=== PATIENT | male | born 1955 | race Caucasian/White ===

== ENCOUNTER 2019-12-22 08:43 | Emergency (ER) | payer MEDICARE, MEDICAID ==
[~2019-12-22] VITALS: Ht 167.6 cm; Wt 61.4 kg
[~2019-12-22 08:43] MED LIST: CEPH250T PO; HCTZ25T PO; LISI10TA4 PO
[2019-12-22 09:05] VITALS: BP 148/89
== END 2019-12-22 09:39 | disposition home or self-care (01) ==
LOC: ER 08:43
DX: Z48.01 Encounter for change or removal of surgical wound dressing (principal); Z90.49 Acquired absence of other specified parts of digestive tract; F15.90 Other stimulant use, unspecified, uncomplicated; Z59.0 Homelessness; Z56.0 Unemployment, unspecified; Z79.2 Long term (current) use of antibiotics; Z79.899 Other long term (current) drug therapy
CPT/HCPCS: 99281

== ENCOUNTER 2020-02-01 01:20 | Emergency (ER) | payer MEDICARE, MEDICAID ==
[~2020-02-01] VITALS: Ht 167.6 cm; Wt 75.7 kg
[~2020-02-01 01:20] MED LIST changes: -CEPH250T PO
[2020-02-01 02:02] LABS: BASOPHILS % (AUTO) 0.4 % (0-1); EOSINOPHILS # (AUTO) 0.2 X10'3 (0-0.9); EOSINOPHILS % (AUTO) 1.7 % (0-6); HEMATOCRIT 36.5 % (42.0-52.0); HEMOGLOBIN 11.8 g/dl (14.0-17.9); LYMPHOCYTES # (AUTO) 3.1 X10'3 (1.1-4.8); LYMPHOCYTES % (AUTO) 24.4 % (21-51); MEAN CORPUSCULAR HEMOGLOBIN 25.9 PG (27.0-31.0); MEAN CORPUSCULAR HGB CONC 32.3 g/dL (33.0-36.5); MEAN CORPUSCULAR VOLUME 80.3 FL (78-98); MEAN PLATELET VOLUME 7.2 FL (7.4-10.4); MONOCYTES # (AUTO) 1.3 X10'3 (0-0.9); MONOCYTES % (AUTO) 10.2 % (2-12); NEUTROPHILS # (AUTO) 8.2 X10'3 (1.8-7.7); NEUTROPHILS % (AUTO) 63.3 % (42-75); PLATELET COUNT 481 X10'3 (140-440); RED BLOOD COUNT 4.55 X10'6 (4.70-6.10); WHITE BLOOD COUNT 12.9 X10'3 (4.5-11.0)
[2020-02-01 02:12] LABS: ALANINE AMINOTRANSFERASE 13 U/L (12-78); ALBUMIN 3.1 G/DL (3.4-5.0); ALBUMIN/GLOBULIN RATIO 0.7 (1.1-1.5); ALKALINE PHOSPHATASE 101 IU/L (46-116); ANION GAP 6 (8-16); ASPARTATE AMINO TRANSFERASE 15 U/L (10-37); BILIRUBIN,TOTAL 0.3 MG/DL (0.1-1.0); BLOOD UREA NITROGEN 18 MG/DL (7-18); BUN/CREATININE RATIO 19.1 (5.4-32.0); CALCIUM 8.6 MG/DL (8.5-10.1); CHLORIDE 106 MMOL/L (99-107); CREATININE 0.94 MG/DL (0.60-1.10); GLUCOSE 96 MG/DL (70-104); LIPASE 126 U/L (73-393); POTASSIUM 3.7 MMOL/L (3.5-5.1); SODIUM 139 MMOL/L (135-145); TOTAL CARBON DIOXIDE 27.3 MMOL/L (24-32); TOTAL PROTEIN 7.3 G/DL (6.4-8.2); eGFR 80 ML/MIN
[2020-02-01 03:41] LABS: CLARITY,URINE CLOUDY (Clear); COLOR,URINE YELLOW (Yellow); GLUCOSE, URINE NEGATIVE (Neg); KETONES,URINE NEGATIVE (Neg); LEUKOCYTE ESTERASE ,URINE LARGE (Neg); NITRITES, URINE NEGATIVE (Neg); OCCULT BLOOD,URINE TRACE-INTACT (Neg); PROTEIN,URINE NEGATIVE (Neg); UROBILINOGEN,URINE 0.2 E.U/dL (0.2-1.0)
[2020-02-01 03:52] LABS: UA COLLECTION TYPE CLN CATCH MIDSTREAM
[2020-02-01 03:54] LABS: BACTERIA,URINE 2+ /HPF (Neg); RBC,URINE NONE SEEN /HPF (0-2); SQUAMOUS EPITHELIAL CELL,UR NONE SEEN /LPF (FEW); WBC,URINE 30-50 /HPF (0-4)
[2020-02-01] MEDS ORDERED: dicyclomine 10 MG capsule PO ONE (03:55)
[2020-02-01] MEDS ORDERED: HYDROcodone/acetaminophen 5mg/325mg tablet PO ONE (03:55)
[2020-02-01] MEDS ORDERED: DOXYCYCLINE 100MG CAPSULE PO STA (03:57)
[2020-02-01] MEDS ORDERED: DOXY150T5 PO (03:59)
[2020-02-01] MEDS ORDERED: ONDA4TAB6 PO (03:59)
[2020-02-01] MEDS ORDERED: phenazopyridine 100mg tablet PO ONE (04:00)
[2020-02-01] MEDS ORDERED: CefTRIAXone 250MG IM Kit w/LIDOcaine IM ONE (04:00)
[2020-02-01] MEDS ORDERED: CefTRIAXone 250MG inj IM ONE (04:00)
[2020-02-01 04:19] VITALS: BP 152/78
== END 2020-02-01 04:22 | disposition home or self-care (01) ==
LOC: ER 01:20
DX: N39.0 Urinary tract infection, site not specified (principal); F15.90 Other stimulant use, unspecified, uncomplicated; F17.200 Nicotine dependence, unspecified, uncomplicated; Z90.49 Acquired absence of other specified parts of digestive tract; Z59.0 Homelessness; Z56.0 Unemployment, unspecified; Z79.899 Other long term (current) drug therapy
CPT/HCPCS: 36415; 80053; 81001; 83690; 85025; 87088; 96372; 99284; J0696; 87077; 87186

== ENCOUNTER 2020-03-02 13:44 | Emergency (ER) | payer MEDICARE, MEDICAID ==
[~2020-03-02] VITALS: Ht 167.6 cm; Wt 61.4 kg
[~2020-03-02 13:44] MED LIST changes: +ONDA4TAB6 PO
[2020-03-02 14:12] VITALS: BP 180/92
== END 2020-03-02 15:28 | disposition home or self-care (01) ==
LOC: ER 13:45
DX: R11.0 Nausea (principal); F15.90 Other stimulant use, unspecified, uncomplicated; Z59.0 Homelessness; Z90.49 Acquired absence of other specified parts of digestive tract; Z56.0 Unemployment, unspecified; Z79.899 Other long term (current) drug therapy
CPT/HCPCS: 99283

== ENCOUNTER 2020-03-27 06:07 | Emergency (ER) | payer MEDICARE, MEDICAID ==
[2020-03-27] MEDS ORDERED: PYRA144O PO (06:20)
--- NOTE | 2020-03-27 06:21 | NUR ---
Assumed care of pt from THOMAS Samaniego. Pt resting comfortably on gurney in no apparent distress.
--- NOTE | 2020-03-27 06:25 | NUR ---
Dr Apariciofs in at bedside for assessment.
[2020-03-27 06:43] VITALS: BP 141/72
== END 2020-03-27 06:47 | disposition home or self-care (01) ==
LOC: ER 06:08
DX: B80 Enterobiasis (principal); R11.0 Nausea; Z90.49 Acquired absence of other specified parts of digestive tract; F15.90 Other stimulant use, unspecified, uncomplicated; Z56.0 Unemployment, unspecified; Z59.0 Homelessness; Z79.899 Other long term (current) drug therapy
CPT/HCPCS: 99283